=== PATIENT | male | born 1935 | race Caucasian/White ===

== ENCOUNTER 2017-12-15 17:21 | Inpatient (IN) ==
[2017-12-15] MEDS ORDERED: Furosemide 40 MG/4 ML VIAL IVP ONE (21:55)
[2017-12-15] MEDS ORDERED: methylPREDNISolone 125 MG/2 ML VIAL IVP ONE (21:56)
[2017-12-15] MEDS: Ipratropium/Albuterol Neb 3 ML IH PRN (22:01)
[2017-12-15 22:43] LABS: Alanine Aminotransferase 34 Units/L (7-52); Albumin 3.5 g/dL (3.5-5.7); Alkaline Phosphatase 47 Units/L (34-104); Aspartate Amino Transferase 30 Units/L (13-39); BUN/Creatinine Ratio 25 (6-26); Bilirubin,Total 0.6 mg/dL (0.3-1.0); Blood Urea Nitrogen 28 mg/dL (8-23); Calcium 8.7 mg/dL (8.6-10.3); Carbon Dioxide 30 mEq/L (23-29); Chloride 97 mEq/L (98-107); Globulin 3.4 g/dL (2.4-3.5); Glucose 220 mg/dL (70-105); Osmolality,Calculated 290 (280-300); Potassium 4.1 mEq/L (3.5-5.1); Sodium 134 mEq/L (136-145); Total Protein 6.9 g/dL (6.4-8.9); eGFR For African Americans > 60 (> 60); eGFR For Non-African Americans > 60 (> 60)
[2017-12-15] MEDS ORDERED: Naloxone 0.4 MG/ML INJ IVP PRN (23:25)
[2017-12-15] MEDS ORDERED: Acetaminophen 325 MG TABLET PO PRN (23:25)
[2017-12-15] MEDS ORDERED: Dextrose Gel 15 GM/37.5 ML TUBE PO PRN ×2 (23:31)
[2017-12-15] MEDS ORDERED: D5% in Water 1,000 ML IVC PRN (23:31)
[2017-12-15] MEDS ORDERED: *HR* Dextrose 50 % in Water (Syg) 50 ML SYRINGE IVP PRN (23:31)
[2017-12-15] MEDS ORDERED: Nitroglycerin 0.4 MG TAB.SUBL SL PRN (23:45)
[2017-12-16] MEDS: Ipratropium/Albuterol Neb 3 ML IH PRN ×2 (04:00→10:08)
[2017-12-16] MEDS: CALCIUM MAGNESIUM ZINC PO SCH ×2 (04:10→23:56)
--- NOTE | 2017-12-16 04:13 | Internal Med History&Physical ---
Date of Encounter: 12/15/17 Time of Encounter: 21:00 Assessment and Plan (1) CHF exacerbation Current visit: Yes Status: Acute Patient has elevated BNP and increased shortness of breath and bilateral leg swelling. Consider CHF exacerbation. The patient has severe valve disease with mainly aortic valve regurgitation. - Place patient on continuous cardiac monitoring. - Strict I/O - Lasix 40 mg IV twice a day - Fluid restriction - Avoid hypertension and bradycardia - Consult cardiology for further management Qualifiers: Congestive heart failure type: unspecified Qualified Code(s): I50.9 - Heart failure, unspecified (2) COPD (chronic obstructive pulmonary disease) Current visit: Yes Status: Acute Patient has no wheezing. We will continue home medication and DuoNeb as needed. 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 Avoid high blood pressure considering severe aortic regurgitation Qualifiers: Hypertension type: essential hypertension Qualified Code(s): I10 - Essential (primary) hypertension (5) CAD (coronary artery disease) Current visit: Yes Status: Acute Patient denies chest pain. Continue home medications Qualifiers: Coronary Disease-Associated Artery/Lesion type: [place] artery [place] vs. transplanted heart: [place] heart Associated angina: without angina Qualified Code(s): I25.10 - Atherosclerotic heart disease of [place] coronary artery without angina pectoris (6) S/P aortic valve replacement Current visit: Yes Status: Acute Patient had aortic valve replaced with bio-valve in [facility] 2 years ago. Patient said his cadmium liquor maker told him there is travis-valve leak. Former echo shows aortic regurgitation. - Management as above (7) Elevated troponin Current visit: Yes Status: Acute Patient denies chest pain. EKG shows no significant ST-T changes. Will check 3 sets of troponin and consult cardiology in a.m. (8) DVT prophylaxis Current visit: Yes Status: Acute Heparin subcutaneously Internal Medicine - H&P: HPI Chief complaint: Shortness of breath Admitted From: Home Plans for Post Hospital Care: Home History of present illness: Mr. Lyon is a 82 year old male with a history of COPD, diabetes, hypertension, CAD S/P stent, CHF, S/P aortic valve replacement with reported valve leak, present to ER for acute shortness of breath since this morning. Patient said he has trouble talking with shortness of breath. Denies fever, denies chest pain or nausea. Patient presents to [place] [facility] and was found elevated BNP and troponin. Patient was treated with Lasix and Solu-Medrol. His shortness of breath has improved. Patient was transferred to our hospital for further management. Past Med Surg Social Fam HX - Past Medical History Medical history: CHF, COPD, coronary artery disease, hyperlipidemia, hypertension Psychiatric history: no psych history - Social History Smoking Status: Former smoker Smokeless Tobacco Status: No Alcohol use: none Drug use: none - Family History Mother History Unknown: Yes Internal Medicine - H&P: Meds Acetaminophen [Tylenol] 650 mg PO Q6HR 12/15/17 [History] Aspirin Enteric Coated [Aspirin EC] 325 mg PO TID 12/15/17 [History] Budesonide/Formoterol 160/4.5 [Symbicort 160/4.5] 2 puff IH BIDR 12/15/17 [ History] Calcium/Magnesium/Zinc [Yivoptf-Quwucxhcr-Goob Tab] 1 each PO AD 12/15/17 [ History] Cholecalciferol (D-3) [Vitamin D] 1,000 unit PO DAILY 12/15/17 [History] Cyanocobalamin (Vitamin B-12) [Vitamin B-12] 1,000 mcg SL DAILY 12/15/17 [ History] Digoxin [Lanoxin] 0.125 mg PO DAILY 12/15/17 [History] DiphenhydraMINE [Benadryl] 25 mg PO BID 12/15/17 [History] Doxazosin [Cardura] 4 mg PO HS 12/15/17 [History] Ferrous Sulfate 325 mg PO DAILY 12/15/17 [History] Furosemide [Lasix] 20 mg PO BID 12/15/17 [History] Gabapentin [Neurontin] 300 mg PO QID 12/15/17 [History] Insulin NPH Human Isophane [Novolin N] 40 unit SQ BID 12/15/17 [History] Insulin Regular, Human [Novolin R] 4 unit SQ 0800,1700 12/15/17 [History] Insulin Regular, Human [Novolin R] 8 unit SQ 1200 12/15/17 [History] Losartan Potassium [Cozaar] 100 mg PO HS 12/15/17 [History] Metoprolol Succinate 12.5 mg PO DAILY 12/15/17 [History] Multivitamin [One Daily Multivitamin] 1 each PO DAILY 12/15/17 [History] Nitroglycerin [Nitrostat] 0.4 mg SL Q5M PRN 12/15/17 [History] Ranitidine HCl [Zantac] 300 mg PO BID 12/15/17 [History] Simvastatin [Zocor] 20 mg PO HS 12/15/17 [History] Theophylline Anhydrous [Usama-24] 300 mg PO DAILY 12/15/17 [History] Vitamin E Acid Succinate [Vitamin E] 400 unit PO DAILY 12/15/17 [History] guaiFENesin [Guaifenesin] 200 mg PO BID 12/15/17 [History] 3 Allergy/AdvReac Type Severity Reaction Status Date / Time lisinopril AdvReac See Verified 12/15/17 20:50 Comments All Systems PM: A 10-system review of systems was performed and is negative for pertinent findings except as documented above in the HPI. - Constitutional Vitals: Temp Pulse Resp BP Pulse Ox 98.1 F 119 20 156/80 92 12/16/17 03:48 12/16/17 03:48 12/16/17 03:48 12/16/17 03:48 12/16/17 03:48 General appearance: Present: mild distress, A&O X 3, answers questions appropriately - Head Head exam: Present: atraumatic, normocephalic - Eye Eye exam: Present: PERRL, conjuntiva pink, sclera anicteric Pupils: Present: PERRL - Neck Neck exam general surgery: Present: supple, trachea midline. Absent: lymphadenopathy - Respiratory Respiratory exam: Present: CTAB. Absent: accessory muscle use, rales, rhonchi, wheezes - Cardiovascular Cardiovascular exam: Present: RRR, +S1, +S2, tachycardia. Absent: diastolic murmur, gallop, rubs, systolic murmur - GI/Abdominal GI/Abdominal exam: Present: normal bowel sounds, soft, no peritoneal signs. Absent: distended, tenderness - Extremities Exam Extremities exam: Present: pedal edema (Bilateral up to knees), warm, radial pulses palpable and symmetrical. Absent: calf tenderness, cyanotic - Neurological Exam Neurological exam: Present: CN II-XII intact, oriented X3, no focal deficits. Absent: pronater drift, facial droop, speech deficit - Skin Skin exam: Present: dry, intact Internal Med - H&P Results - Labs CBC & Chem 7: 12/15/17 22:07 Labs: BMP 12/15/17 22:07 Sodium 134 L Potassium 4.1 Chloride 97 L Carbon Dioxide 30 H BUN 28 H Creatinine 1.12 Glucose 220 H Calcium 8.7 Cardiac Enzymes 12/15/17 Range/Units 22:07 Troponin I 0.93 H* (< 0.04) ng/mL Liver Function 12/15/17 Range/Units 22:07 Total Bilirubin 0.6 (0.3-1.0) mg/dL AST 30 (13-39) Units/L ALT 34 (7-52) Units/L Alkaline Phosphatase 47 (34-104) Units/L Albumin 3.5 (3.5-5.7) g/dL - EKG Data -: EKG Interpreted by Myself EKG shows normal: sinus rhythm Rate: tachycardia - Impressions ITS Impressions Chest X-Ray 12/15/17 21:52 IMPRESSION: Question of developing perihilar infiltrates. Otherwise no acute findings. D/ / Frank Bailey MD / Frank Bailey MD Interpreting Provider: Frank Bailey MD
[2017-12-16 04:43] LABS: Basophils % 0.2 %; Hematocrit 49.9 % (37.5-50.1); Immature Granulocytes % 0.5 % (0-4); Lymphocytes # 0.4 K/mcL (0.6-4.6); Mean Corpuscular HGB Conc 32.1 g/dL (31.6-35.5); Mean Corpuscular Hemoglobin 28.8 pg (28.0-33.3); Mean Corpuscular Volume 89.7 fL (83.0-100.0); Monocytes # 0.1 K/mcL (0.0-1.3); Monocytes % 1.1 %; Neutrophils # 8.7 K/mcL (1.6-8.9); Nucleated Red Blood Cells 0.2 /100 WBC (0); Platelet Count 261 K/mcL (140-400); Red Blood Count 5.56 M/mcL (4.19-5.50); Red Cell Distribution Width 15.8 % (11.5-14.5); Segmented Neutrophils % 94.2 %
[2017-12-16 04:58] LABS: BUN/Creatinine Ratio 26 (6-26); Blood Urea Nitrogen 31 mg/dL (8-23); Calcium 8.9 mg/dL (8.6-10.3); Carbon Dioxide 28 mEq/L (23-29); Chloride 96 mEq/L (98-107); Glucose 289 mg/dL (70-105); Magnesium 2.1 mg/dL (1.6-2.6); Osmolality,Calculated 297 (280-300); Potassium 4.3 mEq/L (3.5-5.1); Sodium 135 mEq/L (136-145); eGFR For African Americans > 60 (> 60); eGFR For Non-African Americans 58 (> 60)
[2017-12-16] MEDS ORDERED: *HR* Heparin 5,000 UNIT/ML VIAL SQ SCH (06:00)
--- NOTE | 2017-12-16 07:33 | Cardiology Consult Note ---
<Giovanny Grant - Last Filed: 12/16/17 13:27> Date of Encounter: 12/16/17 Time of Encounter: 07:30 Assessment and Plan (1) CHF exacerbation Current Visit: Yes Status: Acute Per Cardiology: BNP 823. Volume overload on exam, On IV Lasix 40mg BID. We'll initiate strict I& O, 1500 mL fluid restriction, bilateral MARINA hose. Qualifiers: Congestive heart failure type: unspecified Qualified Code(s): I50.9 - Heart failure, unspecified (2) COPD (chronic obstructive pulmonary disease) Current Visit: Yes Status: Acute Per Cardiology: Hx of nicotine abuse and COPD. CXR: IMPRESSION: Question of developing perihilar infiltrates. Otherwise no acute findings. Further management per primary service. Qualifiers: COPD type: emphysema Emphysema type: unspecified Qualified Code(s): J43.9 - Emphysema, unspecified (3) Elevated troponin Current Visit: Yes Status: Acute Per Cardiology: Troponin is noted to be 0.89, 0.93, and 0.59. Chest pain-free. Echo showed EF preserved 50-55%, [place]. (4) CAD (coronary artery disease) Current Visit: Yes Status: Acute Per Cardiology: Patient reports history of CAD/stents. Per previous review of [facility] records by Dr. Swift: CAD s/p stent in CAD in 2005. 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 Appears last heart catheterization May 2014 at [facility]: NHUNG to OM2, NHUNG x 2 to midLAD, and PTCA to LAD. 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 Patient denies stress test or catheterization since that procedure. Anticipate will need further ischemic evaluation once clinically improved. Possible [facility] Monday. We'll decrease aspirin to baby aspirin. On statin, beta lester, and ARB. We'll initiate IV heparin drip-- no bolus, was on SQ Hep. Discussed and reviewed with Dr. Hussein. Qualifiers: Coronary Disease-Associated Artery/Lesion type: [place] artery [place] vs. transplanted heart: [place] heart Associated angina: without angina Qualified Code(s): I25.10 - Atherosclerotic heart disease of [place] coronary artery without angina pectoris (5) S/P aortic valve replacement Current Visit: Yes Status: Chronic Per Cardiology: Echo shows mild to moderate aortic regurgitation of bioprosthetic aortic valve, no aortic stenosis noted. Last cardiology note reviewed and patient with history of TAVR at [facility] in May 2014. Discussion w patient/family: The assessment and plan as outlined above was discussed with the patient who expressed understanding and agreement. All questions were answered. Thank you for involving us in the care of your patient. Please call with any questions. History of Present Illness Consult date: 12/16/17 Requesting physician: Snow Corbin Consult reason: Trop Chief complaint: SOB History of present illness: Mr. Lyon is a 82 year old male with a relevant past medical history of COPD, CAD with stenting, DM 2, history of nicotine abuse, hx of TAVR at [facility] 05/2014. Last seen by cardiology Dr. Swift September 2017. Cardiology consult for concerns of aortic regurgitation, shortness of breath, and troponin elevation. Patient reports presented with worsening short of breath at rest and with exertion. He does report overall increase in lower extreme swelling and edema. Patient unaware of any significant weight gain. He denies any chest pain or palpitations. Denies any recent infectious process but denies any current cough , fever, chills, nausea, vomiting, diarrhea. He reports history of 3 stents and 2 angioplasties. He denies any dizziness. Reports one fall a few weeks ago "due to tripping". He denied any loss of consciousness or passing out. Past Med Surg Social Fam HX - Past Medical History Attestation: Yes The following information was validated with the patient. Source: patient, old records reviewed Medical history: CHF, COPD, coronary artery disease, hyperlipidemia, hypertension Psychiatric history: no psych history - Social History Smoking Status: Former smoker Smokeless Tobacco Status: No Alcohol use: none Drug use: none - Family History Mother History Unknown: Yes Medications and Allergies Acetaminophen [Tylenol] 650 mg PO Q6HR 12/15/17 [History] Aspirin Enteric Coated [Aspirin EC] 325 mg PO TID 12/15/17 [History] Budesonide/Formoterol 160/4.5 [Symbicort 160/4.5] 2 puff IH BIDR 12/15/17 [ History] Calcium/Magnesium/Zinc [Ljisvln-Lbdeacezb-Zhwn Tab] 1 each PO AD 12/15/17 [ History] Cholecalciferol (D-3) [Vitamin D] 1,000 unit PO DAILY 12/15/17 [History] Cyanocobalamin (Vitamin B-12) [Vitamin B-12] 1,000 mcg SL DAILY 12/15/17 [ History] Digoxin [Lanoxin] 0.125 mg PO DAILY 12/15/17 [History] DiphenhydraMINE [Benadryl] 25 mg PO BID 12/15/17 [History] Doxazosin [Cardura] 4 mg PO HS 12/15/17 [History] Ferrous Sulfate 325 mg PO DAILY 12/15/17 [History] Furosemide [Lasix] 20 mg PO BID 12/15/17 [History] Gabapentin [Neurontin] 300 mg PO QID 12/15/17 [History] Insulin NPH Human Isophane [Novolin N] 40 unit SQ BID 12/15/17 [History] Insulin Regular, Human [Novolin R] 4 unit SQ 0800,1700 12/15/17 [History] Insulin Regular, Human [Novolin R] 8 unit SQ 1200 12/15/17 [History] Losartan Potassium [Cozaar] 100 mg PO HS 12/15/17 [History] Metoprolol Succinate 12.5 mg PO DAILY 12/15/17 [History] Multivitamin [One Daily Multivitamin] 1 each PO DAILY 12/15/17 [History] Nitroglycerin [Nitrostat] 0.4 mg SL Q5M PRN 12/15/17 [History] Ranitidine HCl [Zantac] 300 mg PO BID 12/15/17 [History] Simvastatin [Zocor] 20 mg PO HS 12/15/17 [History] Theophylline Anhydrous [Usama-24] 300 mg PO DAILY 12/15/17 [History] Vitamin E Acid Succinate [Vitamin E] 400 unit PO DAILY 12/15/17 [History] guaiFENesin [Guaifenesin] 200 mg PO BID 12/15/17 [History] 3 Allergy/AdvReac Type Severity Reaction Status Date / Time lisinopril AdvReac See Verified 12/15/17 20:50 Comments All Systems Review: A 10-system review of systems was performed and is negative for pertinent findings except as documented above in the HPI. - Constitutional Constitutional: fatigue - Cardiovascular Cardiovascular: as per HPI, dyspnea at rest, dyspnea on exertion, leg edema Physical Examination Vital Signs, Last 4 Hours Temp Pulse Resp BP Pulse Ox 12/16/17 04:00 18 95 12/16/17 03:48 98.1 F 119 20 156/80 92 General: Conversant, No Apparent Distress HEENT: Atraumatic, Normocephaly, Mucus Membranes Moist Neck: No JVD, Normal carotid pulses Cardiac: Reg Rate and Rhythm, Normal S1 and S2, No Murmur Lungs: Other (conversational dyspnea, mild sob at rest, on NC 02-- reports not on home oxygen, diminished breath spounds throughout) Neuro: Alert and responsive, No focal deficits noted Abdomen: Soft, Non-Tender Skin: No rashes noted on visualized skin Musculoskeletal: No Chest Wall Tenderness Extremities: No Clubbing, No Cyanosis, Normal Pulses, Other (+1-2 pitting edema bilateral lower extremities) Results 12/16/17 04:10 12/16/17 04:10 Lab Results Laboratory Tests 12/15/17 12/15/17 12/15/17 15:54 22:07 22:07 Magnesium AST 30 ALT 34 Troponin I 0.89 H* 0.93 H* 12/16/17 12/16/17 04:10 04:10 Magnesium 2.1 AST ALT Troponin I 0.59 H* Laboratory Tests 12/15/17 15:54 INR 1.2 ITS Impressions Chest X-Ray 12/15/17 21:52 IMPRESSION: Question of developing perihilar infiltrates. Otherwise no acute findings. D/ / Frank Bailey MD / Frank Bailey MD Interpreting Provider: Frank Bailey MD Active Medications Acetaminophen (Tylenol) 650 mg PO Q6HR PRN PRN Reason: Mild Pain (1-3) Stop: 06/16/18 23:26 Albuterol/Ipratropium (Duoneb) 3 ml IH [id number] PRN PRN Reason: Shortness Of Breath/Wheezing Stop: 06/16/18 21:54 Last Admin: 12/16/17 04:00 Dose: 3 ml Aspirin (Aspirin Ec) 325 mg PO TID DENI Stop: 06/17/18 09:01 Budesonide/Formoterol Fumarate (Symbicort) 2 puff IH BIDR DENI PRN Reason: Protocol Stop: 06/17/18 10:01 Cyanocobalamin (Vitamin B12) 1,000 mcg PO DAILY [facility] Stop: 06/17/18 09:01 Dextrose/Water (Dextrose 50% (Syg)) 25 ml IVP AD PRN PRN Reason: Hypoglycemia Stop: 06/16/18 23:32 Digoxin (Lanoxin) 0.125 mg PO DAILY [facility] Stop: 06/17/18 09:01 Diphenhydramine HCl (Benadryl) 25 mg PO BID [facility] Stop: 06/17/18 09:01 Doxazosin Mesylate (Cardura) 4 mg PO HS [facility] Stop: 06/17/18 21:01 Ferrous Sulfate (Ferrous Sulfate) 325 mg PO DAILY [facility] Stop: 06/17/18 09:01 Furosemide (Lasix) 40 mg IVP BID [facility] Stop: 06/17/18 09:01 Gabapentin (Neurontin) 300 mg PO QID [facility] Stop: 06/17/18 09:01 Glucagon (Glucagen) 1 mg IM ONCE PRN PRN Reason: Hypoglycemia Stop: 06/16/18 23:32 Glucose (Gluctose) 15 gm PO ONCE PRN PRN Reason: Hypoglycemia Stop: 06/16/18 23:32 Glucose (Gluctose) 30 gm PO ONCE PRN PRN Reason: Hypoglycemia Stop: 06/16/18 23:32 Heparin Sodium (Porcine) (Heparin) 5,000 unit SQ Q12HCO [facility] Stop: 06/17/18 06:01 Last Admin: 12/16/17 06:57 Dose: 5,000 unit Hydralazine HCl (Hydralazine) 10 mg IVP Q6HR PRN PRN Reason: Hypertension Stop: 06/17/18 04:10 Dextrose (Dextrose 5%) 1,000 mls @ 100 mls/hr IVC .Q10H PRN PRN Reason: HYPOGLYCEMIA Stop: 06/16/18 23:32 Insulin Detemir (Levemir) 16 unit 0.15 unit/kg (16 unit) SQ BID [facility] Stop: 06/17/18 09:01 Insulin Human Lispro (Humalog) 0 units SQ HS [facility] PRN Reason: Protocol Stop: 06/17/18 21:01 Insulin Human Lispro (Humalog) 0 units SQ TIDAC [facility] PRN Reason: Protocol Stop: 06/17/18 07:31 Losartan Potassium (Cozaar) 100 mg PO HS DENI Stop: 06/16/18 23:46 Last Admin: 12/16/17 04:15 Dose: 100 mg Metoprolol Succinate (Toprol Xl) 12.5 mg PO DAILY DENI Stop: 06/17/18 09:01 Multivitamins/Calcium (Thera M Plus) 1 tab PO DAILY DENI Stop: 06/17/18 09:01 Naloxone HCl (Narcan) 0.4 mg IVP Q2MIN PRN PRN Reason: Opioid Reversal Stop: 06/16/18 23:26 Nitroglycerin (Nitroglycerin) 0.4 mg SL Q5M PRN PRN Reason: Chest Pain Stop: 06/16/18 23:46 Pharmacy Profile Note (Patient Taking Own Medication) 0 each PO AD DENI Stop: 06/16/18 23:46 Last Admin: 12/16/17 04:10 Dose: Not Given Simvastatin (Zocor) 20 mg PO HS DENI PRN Reason: Protocol Stop: 06/17/18 21:01 Vitamin D (Vitamin D) 1,000 unit PO DAILY DENI Stop: 06/17/18 09:01 Vitamin E (Vitamin E) 400 unit PO DAILY DENI Stop: 06/17/18 09:01 ECHO 11/2017: Impressions: LVEF 50-55%. Normal LV chamber size and function. Mild concentric left ventricular hypertrophy. Mild left ventricular diastolic dysfunction. Normal right ventricular structure and function. Moderately dilated left atrium. Bioprosthetic aortic valve noted. Leaflets not well visualized. Mild-moderate aortic regurgitation, unclear if vavluar or perivalvular. No prosthetic aortic stenosis. Mean gradient 12 mmHg. No evidence of pulmonary hypertension. Left Ventricular Wall Motion: Rest Echo Findings All wall segments showed normal motion. - Imaging and Cardiology Echo: report reviewed - EKG Interpretation EKG results cardiology: personally reviewed (ST 100's, RBBB), right bundle branch block, other (Telemetry reviewed and showed sinus rhythm to sinus tachycardia with average heart rate 94.) Consult Discharge Plan - Plan [facility]errals: [facility]Primary Care Provider[facility] - <Loretta Hussein - Last Filed: 12/16/17 16:19> Date of Encounter: 12/16/17 - Attending Attestation I examined this patient and my medical decision-making was reviewed with the CLAIM REPRESENTATIVE. I agree with the documented findings, disposition and treatment plan as described. Impression: Mr. Lyon presents with SOB and troponin elevation. He has known CAD most recent PCI in May 2014 at [facility] prior to undergoing TAVR. Also with known Type B aortic dissection, last evaluated in 2014. Echo demonstrated preserved EF without wall motion abnormalities and mild to moderate prosthetic aortic regurgitation without stenosis. The aortic root was normal size on the study. Patient's presenting complaints include resting shortness of breath and lower extremity edema. He denies chest pain, unusual back pain, syncope or palpitations. PLAN: Patient appears volume overloaded on exam. Agree with IV diuresis, fluid restriction and MARINA hose. Troponin noted to be elevated, peak 0.93. Patient is chest pain-free and EF did not demonstrate new wall motion abnormalities. EKG without acute findings. Etiology troponin elevation is unclear. Although he denies chest pain or back pain, it is reasonable to proceed with CT chest imaging given known history of type B aortic dissection. We would like this to be done before potentially anticoagulating the patient with heparin. Recommend increasing BB for better BP control. Assessment and Plan Discussion w patient/family: The assessment and plan as outlined above was discussed with the patient and/or family members who expressed understanding and agreement. All questions were answered. Thank you for involving us in the care of your patient. Please call with any questions. History of Present Illness History of present illness: Mr. Lyon is a 82 year old male All Systems Review: A 10-system review of systems was performed and is negative for pertinent findings except as documented above in the HPI. Physical Examination Vital Signs, Last 4 Hours Temp Pulse Resp BP Pulse Ox 12/16/17 12:03 97.6 F 101 15 139/82 93 Results 12/16/17 04:10 12/16/17 04:10 Lab Results 12/15/17 12/15/17 12/16/17 22:07 22:07 04:10 WBC 9.2 Hgb 16.0 Hct 49.9 Plt Count 261 Sodium 134 L Potassium 4.1 Chloride 97 L Carbon Dioxide 30 H BUN 28 H Creatinine 1.12 Glucose 220 H Calcium 8.7 Magnesium Total Bilirubin 0.6 AST 30 ALT 34 Alkaline Phosphatase 47 Troponin I 0.93 H* 12/16/17 12/16/17 04:10 04:10 WBC Hgb Hct Plt Count Sodium 135 L Potassium 4.3 Chloride 96 L Carbon Dioxide 28 BUN 31 H Creatinine 1.19 Glucose 289 H Calcium 8.9 Magnesium 2.1 Total Bilirubin AST ALT Alkaline Phosphatase Troponin I 0.59 H*
[2017-12-16] MEDS: Furosemide 40 MG/4 ML VIAL IVP SCH ×2 (08:43→21:02)
[2017-12-16] MEDS: Gabapentin 300 MG CAPSULE PO SCH ×4 (08:52→21:03)
[2017-12-16] MEDS: *HR* Digoxin 0.125 MG TABLET PO SCH (08:54)
[2017-12-16] MEDS: Multivit/Ca/Min/Fe/FA 1 TAB TABLET PO SCH (08:55)
[2017-12-16] MEDS: Cyanocobalamin (B-12) 1,000 MCG TABLET PO SCH (08:55)
[2017-12-16] MEDS: Cholecalciferol (D-3) 1,000 UNIT TABLET PO SCH (08:55)
[2017-12-16] MEDS ORDERED: Aspirin Enteric Coated 325 MG Tablet PO SCH (09:00)
[2017-12-16] MEDS ORDERED: Metoprolol XL (24 HR) Succ 25 MG TAB.ER.24H PO SCH (09:00)
[2017-12-16] MEDS: Insulin LISPRO 300 UNITS/3 ML VIAL SQ SCH ×4 (09:06→21:03)
[2017-12-16] MEDS: Insulin DETEMIR 100 UNIT/ML X5UNITS SQ SCH ×2 (09:07→21:05)
[2017-12-16] MEDS: Budesonide/Formoterol 160/4.5 MDI IH SCH ×2 (10:17→21:00)
--- NOTE | 2017-12-16 10:40 | Internal Med Progress Note ---
Date of Encounter: 12/16/17 Time of Encounter: 10:40 - Assessment and plan (1) Acute respiratory failure with hypoxia Current Visit: Yes Status: Acute Assessment and plan: Currently on 4liters oxygen. Moderately dyspneic at rest Continue to titrate oxygen as able while treating CHF (2) CHF exacerbation Current Visit: Yes Status: Acute Assessment and plan: EF of 50-55% in 10/13 Currently receiving IV diuresis Appreciate cardiology input. Monitor electrolytes while diuresing. Qualifiers: Congestive heart failure type: diastolic Qualified Code(s): I50.33 - Acute on chronic diastolic (congestive) heart failure (3) COPD (chronic obstructive pulmonary disease) Current Visit: Yes Status: Chronic Assessment and plan: Chronic issue. Continue aerosols, oxygen and supportive care. Qualifiers: COPD type: emphysema Emphysema type: panlobular Qualified Code(s): J43.1 - Panlobular emphysema (4) Diabetes Current Visit: Yes Status: Chronic Assessment and plan: Monitoring blood sugar and covering with insulin. 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 Qualifiers: Hypertension type: essential hypertension Qualified Code(s): I10 - Essential (primary) hypertension (6) CAD (coronary artery disease) Current Visit: Yes Status: Chronic Assessment and plan: Per cardiology May need further eval before discharge Qualifiers: Coronary Disease-Associated Artery/Lesion type: [place] artery [place] vs. transplanted heart: tribe heart Associated angina: without angina Qualified Code(s): I25.10 - Atherosclerotic heart disease of tribe coronary artery without angina pectoris (7) S/P aortic valve replacement Current Visit: Yes Status: Chronic Assessment and plan: Chronic issue - Subjective Interval history: Mr Lyon is currently admitted for acute exac CHF and resp failure. He remains moderate to high risk due to potential for worsening clinical status. Mr Lyon feels OK at this time. He is breathing a little better than on admit. Denies pain. No fever. Feels he is urinating enough. Slept OK last night. Bowels OK. Still feels he is very congested and full of fluid in his chest. - Constitutional Vitals: Temp Pulse Resp BP Pulse Ox 98.1 F 97 14 142/81 95 12/16/17 08:00 12/16/17 08:00 12/16/17 08:00 12/16/17 08:00 12/16/17 08:00 General appearance: Present: A&O X 3, answers questions appropriately - Head Head exam: Present: atraumatic, normocephalic - Eye Eye exam: Present: EOMI, conjuntiva pink - ENT ENT exam: Present: mucous membranes dry - Respiratory Respiratory exam: Present: rales, rhonchi Additional comments: Bibasilar rales. No wheeze - Cardiovascular Cardiovascular exam: Present: diastolic murmur, RRR. Absent: tachycardia - GI/Abdominal GI/Abdominal exam: Present: soft. Absent: tenderness - Extremities Exam Extremities exam: Present: pedal edema, warm. Absent: tenderness - Neurological Exam Neurological exam: Present: alert, oriented X3, no focal deficits - Skin Skin exam: Present: warm. Absent: rash Internal Medicine: Result - Labs CBC & Chem 7: 12/16/17 15:38 12/16/17 04:10 Labs: Short CBC 12/16/17 Range/Units 04:10 WBC 9.2 (4.3-11.1) K/mcL Hgb 16.0 (12.9-16.9) g/dL Hct 49.9 (37.5-50.1) % Plt Count 261 (140-400) K/mcL Neutrophils # 8.7 (1.6-8.9) K/mcL BMP 12/15/17 12/16/17 22:07 04:10 Sodium 134 L 135 L Potassium 4.1 4.3 Chloride 97 L 96 L Carbon Dioxide 30 H 28 BUN 28 H 31 H Creatinine 1.12 1.19 Glucose 220 H 289 H Calcium 8.7 8.9 Cardiac Enzymes 12/15/17 12/16/17 Range/Units 22:07 04:10 Troponin I 0.93 H* 0.59 H* (< 0.04) ng/mL Liver Function 12/15/17 Range/Units 22:07 Total Bilirubin 0.6 (0.3-1.0) mg/dL AST 30 (13-39) Units/L ALT 34 (7-52) Units/L Alkaline Phosphatase 47 (34-104) Units/L Albumin 3.5 (3.5-5.7) g/dL - Impressions Impressions Chest X-Ray 12/15/17 21:52 IMPRESSION: Question of developing perihilar infiltrates. Otherwise no acute findings. D/ / Frank Bailey MD / Frank Bailey MD Interpreting Provider: Frank Bailey MD Consult Discharge Plan - Plan [facility]: [facility] [Primary Care Provider] -
[2017-12-16] MEDS ORDERED: *HR* Heparin 5,000 UNIT/ML VIAL IVP PRN ×2 (14:29)
[2017-12-16] MEDS ORDERED: Heparin 25,000 UNIT/500 ML D5W 25,000 UNIT/500 ML BAG IVC SCH (14:30)
--- NOTE | 2017-12-16 15:15 | Event Note ---
Date of Encounter: 12/16/17 Time of Encounter: 15:00 - Cardiology Event Note Discussed and reviewed with Dr. 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
[2017-12-16 16:08] LABS: Hematocrit 44.3 % (37.5-50.1); Hemoglobin 14.6 g/dL (12.9-16.9); Mean Corpuscular Hemoglobin 29.3 pg (28.0-33.3); Mean Corpuscular Volume 88.8 fL (83.0-100.0); Mean Platelet Volume 9.2 fL (9.4-12.4); Platelet Count 228 K/mcL (140-400); Red Blood Count 4.99 M/mcL (4.19-5.50); Red Cell Distribution Width 15.5 % (11.5-14.5)
[2017-12-16 16:13] LABS: INR 1.2
[2017-12-16 16:16] LABS: Activated Partial Thrombo Time 26.8 Seconds (26.0-36.0)
[2017-12-17 06:01] LABS: Hematocrit 43.5 % (37.5-50.1); Hemoglobin 13.8 g/dL (12.9-16.9); Mean Corpuscular HGB Conc 31.7 g/dL (31.6-35.5); Mean Corpuscular Hemoglobin 28.8 pg (28.0-33.3); Mean Corpuscular Volume 90.8 fL (83.0-100.0); Mean Platelet Volume 9.2 fL (9.4-12.4); Platelet Count 209 K/mcL (140-400); Red Blood Count 4.79 M/mcL (4.19-5.50); Red Cell Distribution Width 15.8 % (11.5-14.5)
[2017-12-17 06:19] LABS: Calcium 8.4 mg/dL (8.6-10.3); Magnesium 2.5 mg/dL (1.6-2.6); Potassium 4.3 mEq/L (3.5-5.1)
--- NOTE | 2017-12-17 08:07 | Cardiology Progress Note ---
Date of Encounter: 12/17/17 Time of Encounter: 08:05 Assessment and Plan (1) CHF exacerbation Current Visit: Yes Status: Acute Per Cardiology: BNP 823. Volume overload on exam, on IV Lasix 40mg BID, strict I&O, 1500 mL fluid restriction, bilateral MARINA hose-- not on. Net I&O - 847ml. Appears slightly improved. Now with mild SLY. Will discontinue ARB. Continue IV diuresis for now and monitor kidney function closely. Consider nephrology consult if warranted. Patient on digoxin as outpatient-- has preserved EF and no known hx of afib (he believes). Will monitor closely-- may need to stop if SLY worsens. Qualifiers: Congestive heart failure type: diastolic Qualified Code(s): I50.33 - Acute on chronic diastolic (congestive) heart failure (2) COPD (chronic obstructive pulmonary disease) Current Visit: Yes Status: Chronic Per Cardiology: Hx of nicotine abuse and COPD. CXR: IMPRESSION: Question of developing perihilar infiltrates. Otherwise no acute findings. Further management per primary service. Qualifiers: COPD type: emphysema Emphysema type: panlobular Qualified Code(s): J43.1 - Panlobular emphysema (3) Elevated troponin Current Visit: Yes Status: Acute Per Cardiology: Troponin is noted to be 0.89, 0.93, and 0.59. Chest pain-free. Echo showed EF preserved 50-55%, [place]. (4) CAD (coronary artery disease) Current Visit: Yes Status: Chronic Per Cardiology: Patient reports history of CAD/stents. Per previous review of [facility] records by Dr. Swift: CAD s/p stent in CAD in 2005. 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 Appears last heart catheterization May 2014 at [facility]: NHUNG to OM2, NHUNG x 2 to midLAD, and PTCA to LAD. 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 Patient denies stress test or catheterization since that procedure. Anticipate will need further ischemic evaluation once clinically improved. Possible [facility] Monday, however will need to review with interventional cardiology CT results: Chest CTA 12/16/17 15:15 IMPRESSION: 1. No acute aortic pathology. 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 Stable short dissection flap along the left lateral wall of the aortic arch. Moderate diffuse atherosclerotic changes. No aneurysm. 2. No central pulmonary embolic disease. 3. Prominent calcified atherosclerotic plaque in the coronary circulation. 4. New focal subsegmental atelectasis in the right middle lobe. No acute pulmonary infiltrate. Recommend follow-up PA and lateral chest to assess for resolution. If the finding persists, repeat CT is indicated. 5. Cholelithiasis. Additionally, will need to further eval when able to tolerate laying flat for procedure, and monitor ashleyleyda fxn. Will make NPO for possible LHC in am, however suspect may need to wait longer. CP free. On asa, statin, beta lester, will stop ARB d/t SLY. Qualifiers: Coronary Disease-Associated Artery/Lesion type: [place] artery [place] vs. transplanted heart: [place] heart Associated angina: without angina Qualified Code(s): I25.10 - Atherosclerotic heart disease of [place] coronary artery without angina pectoris (5) S/P aortic valve replacement Current Visit: Yes Status: Chronic Per Cardiology: Echo shows mild to moderate aortic regurgitation of bioprosthetic aortic valve, no aortic stenosis noted. Last cardiology note reviewed and patient with history of TAVR at [facility] in May 2014. Discussion w patient/family: The assessment and plan as outlined above was discussed with the patient who expressed understanding and agreement. All questions were answered. Thank you for involving us in the care of your patient. Please call with any questions. Subjective Principal diagnosis: CHF, SOB, Elevated Trop CAD Interval history: Patient denies any chest pain or palpitations. Reports no known history of atrial fibrillation. Confirms taking digoxin at home. Reports shortness of breath and edema slightly improved today. Objective Vital Signs, Last 4 Hours Pulse Resp Pulse Ox 12/17/17 07:38 76 16 95 Selected Entries 12/17/17 03:43 12/17/17 07:38 Blood Pressure 103/51 O2 Sat by Pulse Oximetry 95 Oxygen Flow Rate (LPM) 2 Oxygen Delivery Method Nasal Cannula General: Conversant HEENT: Atraumatic, Normocephaly Cardiac: Reg Rate and Rhythm, Normal S1 and S2, No Murmur Lungs: Other (Diminished breath sounds throughout, few rhonchi at the bases, mild conversational dyspnea noted) Neuro: Alert and responsive, No focal deficits noted Abdomen: Soft Extremities: Other (+1-2 pitting edema to right lower extremity, +1 pitting edema to left lower extremity-- appears slightly improved) Results 12/17/17 05:35 12/17/17 05:35 Lab Results Impressions Chest CTA 12/16/17 15:15 IMPRESSION: 1. No acute aortic pathology. 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 Stable short dissection flap along the left lateral wall of the aortic arch. Moderate diffuse atherosclerotic changes. No aneurysm. 2. No central pulmonary embolic disease. 3. Prominent calcified atherosclerotic plaque in the coronary circulation. 4. New focal subsegmental atelectasis in the right middle lobe. No acute pulmonary infiltrate. Recommend follow-up PA and lateral chest to assess for resolution. If the finding persists, repeat CT is indicated. 5. Cholelithiasis. D/ / 12/16/2017 17:51:48 Frank Bailey MD / [facility] Interpreting Provider: Frank Bailey MD Laboratory Tests 12/15/17 12/15/17 12/16/17 15:54 22:07 04:10 INR Creatinine Est GFR (Non-Af Amer) Troponin I 0.89 H* 0.93 H* 0.59 H* 12/16/17 12/17/17 15:38 05:35 INR 1.2 Creatinine 1.51 H Est GFR (Non-Af Amer) 44 L Troponin I Intake & Output 12/14/17 12/15/17 12/16/17 12/17/17 23:59 23:59 23:59 23:59 Intake Total 483 / 483 320 / 320 Output Total 400 / 400 1250 / 1250 Balance -400 / -400 -767 / -767 320 / 320 Weight 100.4 kg 99 kg Active Medications Acetaminophen (Tylenol) 650 mg PO Q6HR PRN PRN Reason: Mild Pain (1-3) Stop: 06/16/18 23:26 Last Admin: 12/17/17 09:55 Dose: 650 mg Albuterol/Ipratropium (Duoneb) 3 ml IH [id number] PRN PRN Reason: Shortness Of Breath/Wheezing Stop: 06/16/18 21:54 Last Admin: 12/16/17 10:08 Dose: 3 ml Aspirin (Aspirin) 81 mg PO DAILY DENI Stop: 06/18/18 09:01 Last Admin: 12/17/17 09:55 Dose: 81 mg Budesonide/Formoterol Fumarate (Symbicort) 2 puff IH BIDR DENI PRN Reason: Protocol Stop: 06/17/18 10:01 Last Admin: 12/17/17 11:02 Dose: 2 puff Clopidogrel Bisulfate (Plavix) 75 mg PO DAILY DENI Stop: 06/18/18 09:01 Last Admin: 12/17/17 09:53 Dose: 75 mg Cyanocobalamin (Vitamin B12) 1,000 mcg PO DAILY DENI Stop: 06/17/18 09:01 Last Admin: 12/17/17 09:47 Dose: 1,000 mcg Dextrose/Water (Dextrose 50% (Syg)) 25 ml IVP AD PRN PRN Reason: Hypoglycemia Stop: 06/16/18 23:32 Digoxin (Lanoxin) 0.125 mg PO DAILY DENI Stop: 06/17/18 09:01 Last Admin: 12/17/17 09:47 Dose: 0.125 mg Diphenhydramine HCl (Benadryl) 25 mg PO BID DENI Stop: 06/17/18 09:01 Last Admin: 12/17/17 09:48 Dose: 25 mg Doxazosin Mesylate (Cardura) 4 mg PO HS [facility] Stop: 06/17/18 21:01 Last Admin: 12/16/17 21:03 Dose: 4 mg Ferrous Sulfate (Ferrous Sulfate) 325 mg PO DAILY DENI Stop: 06/17/18 09:01 Last Admin: 12/17/17 09:48 Dose: 325 mg Furosemide (Lasix) 40 mg IVP BID DENI Stop: 06/17/18 09:01 Last Admin: 12/17/17 09:48 Dose: 40 mg Gabapentin (Neurontin) 300 mg PO QID DENI Stop: 06/17/18 09:01 Last Admin: 12/17/17 09:47 Dose: 300 mg Glucagon (Glucagen) 1 mg IM ONCE PRN PRN Reason: Hypoglycemia Stop: 06/16/18 23:32 Glucose (Gluctose) 15 gm PO ONCE PRN PRN Reason: Hypoglycemia Stop: 06/16/18 23:32 Glucose (Gluctose) 30 gm PO ONCE PRN PRN Reason: Hypoglycemia Stop: 06/16/18 23:32 Heparin Sodium (Porcine) (Heparin) 5,000 unit SQ Q12HCO [facility] Stop: 06/18/18 08:46 Last Admin: 12/17/17 09:52 Dose: 5,000 unit Hydralazine HCl (Hydralazine) 10 mg IVP Q6HR PRN PRN Reason: Hypertension Stop: 06/17/18 04:10 Dextrose (Dextrose 5%) 1,000 mls @ 100 mls/hr IVC .Q10H PRN PRN Reason: HYPOGLYCEMIA Stop: 06/16/18 23:32 Insulin Detemir (Levemir) 16 unit 0.15 unit/kg (16 unit) SQ BID [facility] Stop: 06/17/18 09:01 Last Admin: 12/17/17 09:48 Dose: 16 unit Insulin Human Lispro (Humalog) 0 units SQ HS DENI PRN Reason: Protocol Stop: 06/17/18 21:01 Last Admin: 12/16/17 21:03 Dose: 3 units Insulin Human Lispro (Humalog) 0 units SQ TIDAC DENI PRN Reason: Protocol Stop: 06/17/18 07:31 Last Admin: 12/17/17 09:49 Dose: 4 units Metoprolol Succinate (Toprol Xl) 25 mg PO DAILY [facility] Stop: 06/18/18 09:01 Last Admin: 12/17/17 09:48 Dose: 25 mg Multivitamins/Calcium (Thera M Plus) 1 tab PO DAILY [facility] Stop: 06/17/18 09:01 Last Admin: 12/17/17 09:48 Dose: 1 tab Naloxone HCl (Narcan) 0.4 mg IVP Q2MIN PRN PRN Reason: Opioid Reversal Stop: 06/16/18 23:26 Nitroglycerin (Nitroglycerin) 0.4 mg SL Q5M PRN PRN Reason: Chest Pain Stop: 06/16/18 23:46 Pharmacy Profile Note (Patient Taking Own Medication) 0 each PO AD DENI Stop: 06/16/18 23:46 Last Admin: 12/16/17 23:56 Dose: Not Given Simvastatin (Zocor) 20 mg PO HS DENI PRN Reason: Protocol Stop: 06/17/18 21:01 Last Admin: 12/16/17 21:03 Dose: 20 mg Vitamin D (Vitamin D) 1,000 unit PO DAILY DENI Stop: 06/17/18 09:01 Last Admin: 12/17/17 09:47 Dose: 1,000 unit Vitamin E (Vitamin E) 400 unit PO DAILY [facility] Stop: 06/17/18 09:01 Last Admin: 12/17/17 09:47 Dose: 400 unit - Imaging and Cardiology Echo: report reviewed - EKG Interpretation EKG results cardiology: other (Sinus rhythm to sinus tachycardia on telemetry 80s to 100s) Consult Discharge Plan - Plan [facility]: [facility] [Primary Care Provider] -
[2017-12-17] MEDS: Cyanocobalamin (B-12) 1,000 MCG TABLET PO SCH (09:47)
[2017-12-17] MEDS: Cholecalciferol (D-3) 1,000 UNIT TABLET PO SCH (09:47)
[2017-12-17] MEDS: *HR* Digoxin 0.125 MG TABLET PO SCH (09:47)
[2017-12-17] MEDS: Gabapentin 300 MG CAPSULE PO SCH ×4 (09:47→20:21)
[2017-12-17] MEDS: Multivit/Ca/Min/Fe/FA 1 TAB TABLET PO SCH (09:48)
[2017-12-17] MEDS: Insulin DETEMIR 100 UNIT/ML X5UNITS SQ SCH ×2 (09:48→21:49)
[2017-12-17] MEDS: Metoprolol XL (24 HR) Succ 25 MG TAB.ER.24H PO SCH (09:48)
[2017-12-17] MEDS: Furosemide 40 MG/4 ML VIAL IVP SCH ×2 (09:48→20:20)
[2017-12-17] MEDS: Insulin LISPRO 300 UNITS/3 ML VIAL SQ SCH ×4 (09:49→21:50)
[2017-12-17] MEDS: *HR* Heparin 5,000 UNIT/ML VIAL SQ SCH ×2 (09:52→17:28)
[2017-12-17] MEDS: Aspirin 81 MG TAB.CHEW PO SCH (09:55)
[2017-12-17] MEDS: Budesonide/Formoterol 160/4.5 MDI IH SCH ×2 (11:02→22:26)
--- NOTE | 2017-12-17 17:16 | Internal Med Progress Note ---
Date of Encounter: 12/17/17 Time of Encounter: 15:45 - Assessment and plan (1) Acute respiratory failure with hypoxia Current Visit: Yes Status: Acute Assessment and plan: Titrating down as able Appears to be a little better today. Continue supportive care. (2) CHF exacerbation Current Visit: Yes Status: Acute Assessment and plan: Slowly diuresing. Appreciate cardiology input Monitoring renal function as it is slightly worse today. Qualifiers: Congestive heart failure type: diastolic Qualified Code(s): I50.33 - Acute on chronic diastolic (congestive) heart failure (3) COPD (chronic obstructive pulmonary disease) Current Visit: Yes Status: Chronic Assessment and plan: Chronic issue. Seems to be wheezing some today Will add abx and steroids and see if it improves respiratory status. Qualifiers: COPD type: emphysema Emphysema type: panlobular Qualified Code(s): J43.1 - Panlobular emphysema (4) Diabetes Current Visit: Yes Status: Chronic Assessment and plan: Monitoring blood sugar and covering with insulin. May worsen with addition of steroids. 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 Qualifiers: Hypertension type: essential hypertension Qualified Code(s): I10 - Essential (primary) hypertension (6) CAD (coronary artery disease) Current Visit: Yes Status: Chronic Assessment and plan: Per cardiology May need further eval before discharge Qualifiers: Coronary Disease-Associated Artery/Lesion type: [place] artery [place] vs. transplanted heart: [place] heart Associated angina: without angina Qualified Code(s): I25.10 - Atherosclerotic heart disease of [place] coronary artery without angina pectoris (7) S/P aortic valve replacement Current Visit: Yes Status: Chronic Assessment and plan: Chronic issue (8) Acute renal failure due to tubular necrosis Current Visit: Yes Status: Suspected Assessment and plan: Related to diuresis. Monitoring renal function. - Subjective Interval history: Mr Lyon is currently admitted for acute exac CHF and resp failure. He remains moderate to high risk due to potential for worsening clinical status. Mr Lyon is resting in bed. His breathing is somewhat better he feels and he can lie flat on his side. No fever. No pain at this time. No GI issues. Appreciate cardiology input. - Constitutional Vitals: Temp Pulse Resp BP Pulse Ox 98.1 F 76 18 106/54 92 12/17/17 08:06 12/17/17 08:06 12/17/17 11:02 12/17/17 08:06 12/17/17 11:04 General appearance: Present: A&O X 3, answers questions appropriately - Head Head exam: Present: atraumatic, normocephalic - Eye Eye exam: Present: EOMI, conjuntiva pink - ENT ENT exam: Present: mucous membranes dry - Respiratory Respiratory exam: Present: decreased breath sounds, rales, wheezes - Cardiovascular Cardiovascular exam: Present: irregular rhythm. Absent: tachycardia - GI/Abdominal GI/Abdominal exam: Present: soft, no peritoneal signs. Absent: tenderness - Extremities Exam Extremities exam: Present: pedal edema, warm - Neurological Exam Neurological exam: Present: alert, oriented X3 - Skin Skin exam: Present: warm. Absent: rash Internal Medicine: Result - Labs CBC & Chem 7: 12/17/17 05:35 12/17/17 05:35 Labs: Short CBC 12/17/17 Range/Units 05:35 WBC 9.1 (4.3-11.1) K/mcL Hgb 13.8 (12.9-16.9) g/dL Hct 43.5 (37.5-50.1) % Plt Count 209 (140-400) K/mcL [facility] 12/17/17 05:35 Sodium 140 Potassium 4.3 Chloride 99 Carbon Dioxide 35 H BUN 37 H Creatinine 1.51 H Glucose 179 H Calcium 8.4 L - ABG Interpretation ABG results: PT/INR, D-dimer PT 13.0 Seconds (9.4-12.1) H 12/16/17 15:38 - Impressions Impressions Chest CTA 12/16/17 15:15 IMPRESSION: 1. No acute aortic pathology. 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 Stable short dissection flap along the left lateral wall of the aortic arch. Moderate diffuse atherosclerotic changes. No aneurysm. 2. No central pulmonary embolic disease. 3. Prominent calcified atherosclerotic plaque in the coronary circulation. 4. New focal subsegmental atelectasis in the right middle lobe. No acute pulmonary infiltrate. Recommend follow-up PA and lateral chest to assess for resolution. If the finding persists, repeat CT is indicated. 5. Cholelithiasis. D/ / 12/16/2017 17:51:48 Frank Bailey MD / [facility] Interpreting Provider: Frank Bailey MD Consult Discharge Plan - Plan Referrals: [facility] [Primary Care Provider] -
[2017-12-17] MEDS: predniSONE 20 MG TABLET PO SCH (20:08)
[2017-12-17] MEDS: Azithromycin 250 MG TABLET PO SCH (20:08)
[2017-12-17] MEDS: cefTRIAXone 1,000 MG in Water for inj. (sterile) 20 ML 10 ML IVP SCH (20:09)
[2017-12-17] MEDS: Ipratropium/Albuterol Neb 3 ML IH PRN (22:26)
[2017-12-18] MEDS: CALCIUM MAGNESIUM ZINC PO SCH (00:02)
[2017-12-18 05:34] LABS: Hematocrit 42.9 % (37.5-50.1); Hemoglobin 13.8 g/dL (12.9-16.9); Mean Corpuscular HGB Conc 32.2 g/dL (31.6-35.5); Mean Corpuscular Hemoglobin 29.2 pg (28.0-33.3); Mean Corpuscular Volume 90.7 fL (83.0-100.0); Mean Platelet Volume 9.5 fL (9.4-12.4); Platelet Count 216 K/mcL (140-400); Red Blood Count 4.73 M/mcL (4.19-5.50); Red Cell Distribution Width 15.7 % (11.5-14.5)
[2017-12-18 05:35] LABS: BUN/Creatinine Ratio 31 (6-26); Blood Urea Nitrogen 38 mg/dL (8-23); Calcium 8.7 mg/dL (8.6-10.3); Carbon Dioxide 34 mEq/L (23-29); Chloride 97 mEq/L (98-107); Glucose 254 mg/dL (70-105); Magnesium 2.3 mg/dL (1.6-2.6); Osmolality,Calculated 302 (280-300); Potassium 5.1 mEq/L (3.5-5.1); Sodium 137 mEq/L (136-145); eGFR For African Americans > 60 (> 60); eGFR For Non-African Americans 57 (> 60)
[2017-12-18] MEDS: *HR* Heparin 5,000 UNIT/ML VIAL SQ SCH ×2 (05:39→18:12)
[2017-12-18] MEDS: Budesonide/Formoterol 160/4.5 MDI IH SCH ×2 (08:05→20:39)
[2017-12-18] MEDS: Insulin LISPRO 300 UNITS/3 ML VIAL SQ SCH ×3 (08:10→17:14)
[2017-12-18] MEDS: cefTRIAXone 1,000 MG in Water for inj. (sterile) 20 ML 10 ML IVP SCH (08:12)
[2017-12-18] MEDS: Furosemide 40 MG/4 ML VIAL IVP SCH ×2 (08:13→17:14)
[2017-12-18] MEDS: predniSONE 20 MG TABLET PO SCH (08:14)
[2017-12-18] MEDS: Metoprolol XL (24 HR) Succ 25 MG TAB.ER.24H PO SCH (08:14)
[2017-12-18] MEDS: Gabapentin 300 MG CAPSULE PO SCH ×3 (08:14→21:14)
[2017-12-18] MEDS: Multivit/Ca/Min/Fe/FA 1 TAB TABLET PO SCH (08:14)
[2017-12-18] MEDS: Cyanocobalamin (B-12) 1,000 MCG TABLET PO SCH (08:14)
[2017-12-18] MEDS: *HR* Digoxin 0.125 MG TABLET PO SCH (08:14)
[2017-12-18] MEDS: Cholecalciferol (D-3) 1,000 UNIT TABLET PO SCH (08:14)
[2017-12-18] MEDS: Aspirin 81 MG TAB.CHEW PO SCH (08:15)
[2017-12-18] MEDS: Insulin DETEMIR 100 UNIT/ML X5UNITS SQ SCH ×2 (08:15→21:15)
--- NOTE | 2017-12-18 10:09 | Cardiology Progress Note ---
Date of Encounter: 12/18/17 Time of Encounter: 10:00 Assessment and Plan (1) CHF exacerbation Current Visit: Yes Status: Acute Per Cardiology: BNP 823. Volume overload on exam, on IV Lasix 40mg BID, strict I&O, 1500 mL fluid restriction, bilateral MARINA hose-- not on. Net I&O -1812ml. Appears slightly improved. Off ARB-- had mild SLY. Continue IV diuresis for now and monitor kidney function closely. Consider nephrology consult if warranted. Patient on digoxin as outpatient-- has preserved EF and no known hx of afib (he believes). Will monitor closely-- may need to stop if SLY worsens. Qualifiers: Congestive heart failure type: diastolic Qualified Code(s): I50.33 - Acute on chronic diastolic (congestive) heart failure (2) COPD (chronic obstructive pulmonary disease) Current Visit: Yes Status: Chronic Per Cardiology: Hx of nicotine abuse and COPD. CXR: IMPRESSION: Question of developing perihilar infiltrates. Otherwise no acute findings. Further management per primary service. Qualifiers: COPD type: emphysema Emphysema type: panlobular Qualified Code(s): J43.1 - Panlobular emphysema (3) Elevated troponin Current Visit: Yes Status: Acute Per Cardiology: Troponin is noted to be 0.89, 0.93, and 0.59. Chest pain-free. Echo showed EF preserved 50-55%, NSWMA. (4) CAD (coronary artery disease) Current Visit: Yes Status: Chronic Per Cardiology: Patient reports history of CAD/stents. Per previous review of [facility] records by Dr. Swift: CAD s/p stent in CAD in 2005. 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 Appears last heart catheterization May 2014 at [facility]: NHUNG to OM2, NHUNG x 2 to midLAD, and PTCA to LAD. 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 Patient denies stress test or catheterization since that procedure. Chest CTA 12/16/17 15:15 IMPRESSION: 1. No acute aortic pathology. 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 Stable short dissection flap along the left lateral wall of the aortic arch. Moderate diffuse atherosclerotic changes. No aneurysm. 2. No central pulmonary embolic disease. 3. Prominent calcified atherosclerotic plaque in the coronary circulation. 4. New focal subsegmental atelectasis in the right middle lobe. No acute pulmonary infiltrate. Recommend follow-up PA and lateral chest to assess for resolution. If the finding persists, repeat CT is indicated. 5. Cholelithiasis. Patient reviewed and discussed with Dr. Galdamez. CT results reviewed. Patient deemed high risk for cath, recommend evaluate at [facility] if needed. I discussed with patient, he remains CP free. We discussed potential transfer to [facility] for eval for LHC, however patient prefers to continue with medical management and f/ u with Dr. Swift as outpatient to re-evalaute. Can consider referral to [facility] for cath then if clinically warranted. On asa, statin, beta lester, off ARB d/ t SLY. Discussed with primary service, will s/o, re-consult PRN, f/u arranged. Qualifiers: Coronary Disease-Associated Artery/Lesion type: [place] artery [place] vs. transplanted heart: [place] heart Associated angina: without angina Qualified Code(s): I25.10 - Atherosclerotic heart disease of [place] coronary artery without angina pectoris (5) S/P aortic valve replacement Current Visit: Yes Status: Chronic Per Cardiology: Echo shows mild to moderate aortic regurgitation of bioprosthetic aortic valve, no aortic stenosis noted. Last cardiology note reviewed and patient with history of TAVR at [facility] in May 2014. Discussion w patient/family: The assessment and plan as outlined above was discussed with the patient who expressed understanding and agreement. All questions were answered. Thank you for involving us in the care of your patient. Please call with any questions. Subjective Principal diagnosis: CHF, SOB, Elevated Trop CAD Interval history: Patient denies any chest pain or palpitations. Reports shortness of breath and edema slightly improved today. Objective Vital Signs, Last 4 Hours Temp Pulse Resp BP Pulse Ox 12/18/17 08:06 16 93 12/18/17 06:32 97.6 F 91 15 123/60 92 General: Conversant, No Apparent Distress HEENT: Atraumatic, Normocephaly Cardiac: Reg Rate and Rhythm, Normal S1 and S2, No Murmur Lungs: Other (dimin) Neuro: Alert and responsive, No focal deficits noted Skin: No rashes noted on visualized skin Extremities: Other (+1 pitting edema, R>L) Results 12/18/17 04:30 12/18/17 04:30 Lab Results Laboratory Tests 12/15/17 12/16/17 12/18/17 22:07 04:10 04:30 Creatinine 1.22 BUN/Creatinine Ratio 31 H Troponin I 0.93 H* 0.59 H* Intake & Output 12/15/17 12/16/17 12/17/17 12/18/17 23:59 23:59 23:59 23:59 Intake Total 963 / 963 650 / 650 0 / 0 Output Total 400 / 400 1250 / 1250 1175 / 1175 600 / 600 Balance -400 / -400 -287 / -287 -525 / -525 -600 / -600 Weight 100.4 kg 99 kg 98.4 kg Active Medications Acetaminophen (Tylenol) 650 mg PO Q6HR PRN PRN Reason: Mild Pain (1-3) Stop: 06/16/18 23:26 Last Admin: 12/17/17 09:55 Dose: 650 mg Albuterol/Ipratropium (Duoneb) 3 ml IH [id number] PRN PRN Reason: Shortness Of Breath/Wheezing Stop: 06/16/18 21:54 Last Admin: 12/17/17 22:26 Dose: 3 ml Aspirin (Aspirin) 81 mg PO DAILY [facility] Stop: 06/18/18 09:01 Last Admin: 12/18/17 08:15 Dose: 81 mg Azithromycin (Zithromax) 500 mg PO Q24H DENI Stop: 06/18/18 18:01 Last Admin: 12/17/17 20:08 Dose: 500 mg Budesonide/Formoterol Fumarate (Symbicort) 2 puff IH BIDR DENI PRN Reason: Protocol Stop: 06/17/18 10:01 Last Admin: 12/18/17 08:05 Dose: 2 puff Clopidogrel Bisulfate (Plavix) 75 mg PO DAILY [facility] Stop: 06/18/18 09:01 Last Admin: 12/18/17 08:13 Dose: 75 mg Cyanocobalamin (Vitamin B12) 1,000 mcg PO DAILY [facility] Stop: 06/17/18 09:01 Last Admin: 12/18/17 08:14 Dose: 1,000 mcg Dextrose/Water (Dextrose 50% (Syg)) 25 ml IVP AD PRN PRN Reason: Hypoglycemia Stop: 06/16/18 23:32 Digoxin (Lanoxin) 0.125 mg PO DAILY [facility] Stop: 06/17/18 09:01 Last Admin: 12/18/17 08:14 Dose: 0.125 mg Diphenhydramine HCl (Benadryl) 25 mg PO BID DENI Stop: 06/17/18 09:01 Last Admin: 12/18/17 08:15 Dose: 25 mg Doxazosin Mesylate (Cardura) 4 mg PO HS [facility] Stop: 06/17/18 21:01 Last Admin: 12/17/17 20:21 Dose: 4 mg Ferrous Sulfate (Ferrous Sulfate) 325 mg PO DAILY [facility]I Stop: 06/17/18 09:01 Last Admin: 12/18/17 08:15 Dose: 325 mg Furosemide (Lasix) 40 mg IVP BID [facility] Stop: 06/17/18 09:01 Last Admin: 12/18/17 08:13 Dose: 40 mg Gabapentin (Neurontin) 300 mg PO QID [facility] Stop: 06/17/18 09:01 Last Admin: 12/18/17 08:14 Dose: 300 mg Glucagon (Glucagen) 1 mg IM ONCE PRN PRN Reason: Hypoglycemia Stop: 06/16/18 23:32 Glucose (Gluctose) 15 gm PO ONCE PRN PRN Reason: Hypoglycemia Stop: 06/16/18 23:32 Glucose (Gluctose) 30 gm PO ONCE PRN PRN Reason: Hypoglycemia Stop: 06/16/18 23:32 Heparin Sodium (Porcine) (Heparin) 5,000 unit SQ Q12HCO [facility] Stop: 06/18/18 08:46 Last Admin: 12/18/17 05:39 Dose: 5,000 unit Hydralazine HCl (Hydralazine) 10 mg IVP Q6HR PRN PRN Reason: Hypertension Stop: 06/17/18 04:10 Dextrose (Dextrose 5%) 1,000 mls @ 100 mls/hr IVC .Q10H PRN PRN Reason: HYPOGLYCEMIA Stop: 06/16/18 23:32 Ceftriaxone Sodium 1,000 mg/ (Sterile Water) 10 mls @ 300 mls/hr IVP DAILY [facility] Stop: 06/18/18 18:01 Last Admin: 12/18/17 08:12 Dose: 300 mls/hr Insulin Detemir (Levemir) 16 unit 0.15 unit/kg (16 unit) SQ BID [facility] Stop: 06/17/18 09:01 Last Admin: 12/18/17 08:15 Dose: 16 unit Insulin Human Lispro (Humalog) 0 units SQ HS DENI PRN Reason: Protocol Stop: 06/17/18 21:01 Last Admin: 12/17/17 21:50 Dose: 2 units Insulin Human Lispro (Humalog) 0 units SQ TIDAC DENI PRN Reason: Protocol Stop: 06/17/18 07:31 Last Admin: 12/18/17 08:10 Dose: 300 units Metoprolol Succinate (Toprol Xl) 25 mg PO DAILY [facility] Stop: 06/18/18 09:01 Last Admin: 12/18/17 08:14 Dose: 25 mg Multivitamins/Calcium (Thera M Plus) 1 tab PO DAILY [facility] Stop: 06/17/18 09:01 Last Admin: 12/18/17 08:14 Dose: 1 tab Naloxone HCl (Narcan) 0.4 mg IVP Q2MIN PRN PRN Reason: Opioid Reversal Stop: 06/16/18 23:26 Nitroglycerin (Nitroglycerin) 0.4 mg SL Q5M PRN PRN Reason: Chest Pain Stop: 06/16/18 23:46 Pharmacy Profile Note (Patient Taking Own Medication) 0 each PO AD [facility] Stop: 06/16/18 23:46 Last Admin: 12/18/17 00:02 Dose: Not Given Prednisone (Prednisone) 40 mg PO DAILY [facility] Stop: 06/18/18 18:01 Last Admin: 12/18/17 08:14 Dose: 40 mg Simvastatin (Zocor) 20 mg PO HS DENI PRN Reason: Protocol Stop: 06/17/18 21:01 Last Admin: 12/17/17 20:22 Dose: 20 mg Vitamin D (Vitamin D) 1,000 unit PO DAILY [facility] Stop: 06/17/18 09:01 Last Admin: 12/18/17 08:14 Dose: 1,000 unit Vitamin E (Vitamin E) 400 unit PO DAILY [facility] Stop: 06/17/18 09:01 Last Admin: 12/18/17 08:14 Dose: 400 unit - EKG Interpretation EKG results cardiology: other (Telemetry review with average heart rate 89 the past 12 hours, currently sinus rhythm in the 80s with occasional PVCs) Consult Discharge Plan - Plan [facility]: [facility]Primary Care Provider[facility] -
--- NOTE | 2017-12-18 10:35 | Internal Med Progress Note ---
<KinacharanjitNakul santo - Last Filed: 12/18/17 17:34> Date of Encounter: 12/18/17 Time of Encounter: 10:32 - Assessment and plan (1) Acute respiratory failure with hypoxia Current Visit: Yes Status: Acute Assessment and plan: - Likely secondary to CHF exacerbation - I/O -1.8L since admission - Tolerating 92% on 2L, no home O2 requirement - Cardiology following. - Clinically appears to be improving. - CXR and CTA chest unconvincing for infiltrate Plan - Continue diuresis with 40 mg IV BID per cardiology - Continue to monitor. (2) CHF exacerbation Current Visit: Yes Status: Acute Assessment and plan: Diuresing with Lasix 40 mg IV twice a day per cardiology Appreciate cardiology input He will function greatly improved today at 38/1.22 - -1.8 L since admission - Continue to monitor and diuresis for an additional day with likely discharge tomorrow Qualifiers: Congestive heart failure type: diastolic Qualified Code(s): I50.33 - Acute on chronic diastolic (congestive) heart failure (3) COPD (chronic obstructive pulmonary disease) Current Visit: Yes Status: Chronic Assessment and plan: Chronic issue. We will auscultation on examination Continue prednisone, antibiotics for possible COPD exacerbation component Qualifiers: COPD type: emphysema Emphysema type: panlobular Qualified Code(s): J43.1 - Panlobular emphysema (4) Diabetes Current Visit: Yes Status: Chronic Assessment and plan: Monitoring blood sugar and covering with insulin. May worsen with addition of steroids. 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 Well controlled this morning at 123/60 Qualifiers: Hypertension type: essential hypertension Qualified Code(s): I10 - Essential (primary) hypertension (6) S/P aortic valve replacement Current Visit: Yes Status: Chronic Assessment and plan: Chronic issue , bioprosthetic valve Possible evidence of leak on CT scan. will likely need further evaluation at [facility] upon discharge Acute intervention planned Cardiology following, appreciate recommendations (7) Acute renal failure due to tubular necrosis Current Visit: Yes Status: Suspected Assessment and plan: Related to diuresis. Monitoring renal function. BUN/creatinine greatly improved today at 38/1.22, nearing baseline (8) Elevated troponin Current Visit: Yes Status: Acute Assessment and plan: Troponin of 0.93 on admission, trended down to 0.59 - No complaints of chest pain at this time - Cardiology on board, appreciate recommendations - No EKG changes - Likely related to demand ischemia, and given leaking aortic replacement valve may possibly need heart catheterization at [facility] - No acute intervention planned at this time (9) DVT prophylaxis Current Visit: Yes Status: Acute Assessment and plan: Heparin 5000 units every 12 hours - Time Spent With Patient 25 - 35 minutes - Subjective Interval history: Patient seen and examined that this morning. He states that he presented to emergency department due to "not feeling good". He denies any symptoms of chest pain but admits to some chronic shortness of breath lower actually swelling. Denies any symptoms of fevers, chills, nausea, vomiting. He is in no pain at this time. States that overall he feels about the same as when he presented to the emergency department. Denies use of home O2. No difficulty urinating but does states he has not had a BM since admission. - Constitutional Vitals: Temp Pulse Resp BP Pulse Ox 97.6 F 91 16 123/60 93 12/18/17 06:32 12/18/17 06:32 12/18/17 08:06 12/18/17 06:32 12/18/17 08:06 General appearance: Present: A&O X 3, answers questions appropriately Exam: Gen.: Vitals noted. No acute distress. AAOx3 HEENT: PERRL/EOMI, oropharynx clear, Normocephalic, atraumatic. Dry mucous membranes Cardiac: RRR, no murmur, +S1/S2 Pulmonary: Diminished breath sounds, otherwise CTA bilaterally, no wheezes, rales or rhonchi, equal chest expansion Abdomen: soft, nontender, BS noted, no guarding MSK: ROM intact, no joint swelling noted Extremities: 2+ pitting edema, more prominent on right, nontender calf, no cyanosis or clubbing Neuro: A&Ox3, moves all extremities, no focal deficits Psych: Appropriate mood and behavior Internal Medicine: Result - Labs CBC & Chem 7: 12/18/17 04:30 12/18/17 04:30 Labs: Short CBC 12/18/17 Range/Units 04:30 WBC 7.4 (4.3-11.1) K/mcL Hgb 13.8 (12.9-16.9) g/dL Hct 42.9 (37.5-50.1) % Plt Count 216 (140-400) K/mcL BMP 12/18/17 04:30 Sodium 137 Potassium 5.1 Chloride 97 L Carbon Dioxide 34 H BUN 38 H Creatinine 1.22 Glucose 254 H Calcium 8.7 - ABG Interpretation ABG results: PT/INR, D-dimer PT 13.0 Seconds (9.4-12.1) H 12/16/17 15:38 Consult Discharge Plan - Plan [facility]errals: [facility] [Primary Care Provider] - <Tony Mendoza - Last Filed: 12/18/17 18:57> Date of Encounter: 12/18/17 - Assessment and plan (1) Acute respiratory failure with hypoxia Current Visit: Yes Status: Acute (2) CHF exacerbation Current Visit: Yes Status: Resolved Qualifiers: Congestive heart failure type: diastolic Qualified Code(s): I50.33 - Acute on chronic diastolic (congestive) heart failure (3) COPD (chronic obstructive pulmonary disease) Current Visit: Yes Status: Chronic Qualifiers: COPD type: emphysema Emphysema type: panlobular Qualified Code(s): J43.1 - Panlobular emphysema (4) Diabetes Current Visit: Yes Status: Chronic Qualifiers: Diabetes mellitus type: type 2 Diabetes mellitus complication status: with hyperglycemia Diabetes mellitus halfway insulin use: with halfway use Qualified Code(s): E11.65 - Type 2 diabetes mellitus with hyperglycemia; Z79.4 - nursing home (current) use of insulin; 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 transplanted heart: [place] heart Associated angina: without angina Qualified Code(s): I25.10 - Atherosclerotic heart disease of [place] coronary artery without angina pectoris (7) S/P aortic valve replacement Current Visit: Yes Status: Chronic (8) Acute renal failure due to tubular necrosis Current Visit: Yes Status: Suspected - Constitutional Vitals: Temp Pulse Resp BP Pulse Ox 97.8 F 86 14 128/62 90 12/18/17 15:08 12/18/17 15:08 12/18/17 15:08 12/18/17 15:08 12/18/17 15:08 Internal Medicine: Result - Labs CBC & Chem 7: 12/18/17 04:30 12/18/17 04:30 Labs: Short CBC 12/18/17 Range/Units 04:30 WBC 7.4 (4.3-11.1) K/mcL Hgb 13.8 (12.9-16.9) g/dL Hct 42.9 (37.5-50.1) % Plt Count 216 (140-400) K/mcL BMP 12/18/17 04:30 Sodium 137 Potassium 5.1 Chloride 97 L Carbon Dioxide 34 H BUN 38 H Creatinine 1.22 Glucose 254 H Calcium 8.7 - ABG Interpretation ABG results: PT/INR, D-dimer PT 13.0 Seconds (9.4-12.1) H 12/16/17 15:38 - Attending Attestation I examined this patient and my medical decision-making was reviewed with the Resident Physician on 12/18/17. I agree with the documented findings, disposition and treatment plan as described except to the extent set forth below. Mr Lyon is currently admitted for acute exac CHF. He remains moderate to high risk due to potential for worsening clinical status. Mr Lyon appears to be breathing somewhat better today. He can lie flat better. No fever or pain. Appetite OK. Exam Alert. Comfortable Mucus membranes dry Heart reg with murmur Lungs with rales I/P 1. Resp failure 2. CHF Further diagnoses and plan as above.
[2017-12-18] MEDS ORDERED: Insulin LISPRO 300 UNITS/3 ML VIAL SQ SCH (10:48)
[2017-12-18] MEDS: Sennosides/Docusate Sodium TABLET PO SCH (12:09)
[2017-12-18] MEDS: Azithromycin 250 MG TABLET PO SCH (19:01)
[2017-12-18] MEDS ORDERED: Gabapentin 300 MG CAPSULE PO SCH (21:00)
[2017-12-19 05:00] LABS: BUN/Creatinine Ratio 33 (6-26); Blood Urea Nitrogen 32 mg/dL (8-23); Calcium 8.8 mg/dL (8.6-10.3); Carbon Dioxide 31 mEq/L (23-29); Chloride 100 mEq/L (98-107); Glucose 132 mg/dL (70-105); Osmolality,Calculated 297 (280-300); Sodium 139 mEq/L (136-145); eGFR For African Americans > 60 (> 60); eGFR For Non-African Americans > 60 (> 60)
[2017-12-19] MEDS: *HR* Heparin 5,000 UNIT/ML VIAL SQ SCH (06:22)
[2017-12-19] MEDS: Gabapentin 300 MG CAPSULE PO SCH ×2 (06:22→09:34)
[2017-12-19] MEDS: Ipratropium/Albuterol Neb 3 ML IH PRN (06:29)
--- NOTE | 2017-12-19 06:52 | Electrocardiograph Report ---
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
[2017-12-19] MEDS: Budesonide/Formoterol 160/4.5 MDI IH SCH (08:01)
[2017-12-19] MEDS: Multivit/Ca/Min/Fe/FA 1 TAB TABLET PO SCH (09:34)
[2017-12-19] MEDS: predniSONE 20 MG TABLET PO SCH (09:34)
[2017-12-19] MEDS: cefTRIAXone 1,000 MG in Water for inj. (sterile) 20 ML 10 ML IVP SCH (09:34)
[2017-12-19] MEDS: Metoprolol XL (24 HR) Succ 25 MG TAB.ER.24H PO SCH (09:35)
[2017-12-19] MEDS: Cholecalciferol (D-3) 1,000 UNIT TABLET PO SCH (09:35)
[2017-12-19] MEDS: Furosemide 40 MG/4 ML VIAL IVP SCH (09:36)
[2017-12-19] MEDS: *HR* Digoxin 0.125 MG TABLET PO SCH (09:36)
[2017-12-19] MEDS: Sennosides/Docusate Sodium TABLET PO SCH (09:36)
[2017-12-19] MEDS: Insulin DETEMIR 100 UNIT/ML X5UNITS SQ SCH (09:36)
[2017-12-19] MEDS: Cyanocobalamin (B-12) 1,000 MCG TABLET PO SCH (09:36)
[2017-12-19] MEDS: Aspirin 81 MG TAB.CHEW PO SCH (09:36)
[2017-12-19] MEDS: Insulin LISPRO 300 UNITS/3 ML VIAL SQ SCH (09:37)
--- NOTE | 2017-12-19 10:07 | Discharge Summary ---
<HerberthNakul santo - Last Filed: 12/19/17 10:04> Date of Encounter: 12/19/17 Time of Encounter: 10:04 - Discharge Diagnosis (1) Acute respiratory failure with hypoxia Priority: Primary Status: Acute (2) CHF exacerbation Priority: Secondary Status: Resolved Qualifiers: Congestive heart failure type: diastolic Qualified Code(s): I50.33 - Acute on chronic diastolic (congestive) heart failure (3) COPD (chronic obstructive pulmonary disease) Priority: Secondary Status: Chronic Qualifiers: COPD type: emphysema Emphysema type: panlobular Qualified Code(s): J43.1 - Panlobular emphysema (4) Diabetes Priority: Secondary Status: Chronic Qualifiers: Diabetes mellitus type: type 2 Diabetes mellitus complication status: with hyperglycemia Diabetes mellitus intermediate insulin use: with street cleaner use Qualified Code(s): E11.65 - Type 2 diabetes mellitus with hyperglycemia; 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; 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 ; Z79.4 - senior care (current) use of insulin; Z79.4 - senior care (current) use of insulin (5) Hypertension Priority: Secondary Status: Chronic Qualifiers: Hypertension type: essential hypertension Qualified Code(s): I10 - Essential (primary) hypertension (6) S/P aortic valve replacement Priority: Secondary Status: Chronic (7) Acute renal failure due to tubular necrosis Priority: Secondary Status: Suspected (8) Elevated troponin Priority: Secondary Status: Acute (9) DVT prophylaxis Priority: Secondary Status: Acute - Discharge Medications Prescriptions: Azithromycin [Zithromax] 500 mg PO Q24H #3 tablet Clopidogrel [Plavix] 75 mg PO DAILY #30 tab Home Medications: Acetaminophen [Tylenol] 650 mg PO Q6HR 12/15/17 [History] Aspirin Enteric Coated [Aspirin EC] 325 mg PO TID 12/15/17 [History] Budesonide/Formoterol 160/4.5 [Symbicort 160/4.5] 2 puff IH BIDR 12/15/17 [ History] Calcium/Magnesium/Zinc [Rkzveie-Mauphqxyr-Zpba Tab] 1 each PO AD 12/15/17 [ History] Cholecalciferol (D-3) [Vitamin D] 1,000 unit PO DAILY 12/15/17 [History] Cyanocobalamin (Vitamin B-12) [Vitamin B-12] 1,000 mcg SL DAILY 12/15/17 [ History] Digoxin [Lanoxin] 0.125 mg PO DAILY 12/15/17 [History] DiphenhydraMINE [Benadryl] 25 mg PO BID 12/15/17 [History] Doxazosin [Cardura] 4 mg PO HS 12/15/17 [History] Ferrous Sulfate 325 mg PO DAILY 12/15/17 [History] Furosemide [Lasix] 20 mg PO BID 12/15/17 [History] Gabapentin [Neurontin] 300 mg PO QID 12/15/17 [History] Insulin NPH Human Isophane [Novolin N] 40 unit SQ BID 12/15/17 [History] Insulin Regular, Human [Novolin R] 4 unit SQ 0800,1700 12/15/17 [History] Insulin Regular, Human [Novolin R] 8 unit SQ 1200 12/15/17 [History] Losartan Potassium [Cozaar] 100 mg PO HS 12/15/17 [History] Metoprolol Succinate 12.5 mg PO DAILY 12/15/17 [History] Multivitamin [One Daily Multivitamin] 1 each PO DAILY 12/15/17 [History] Nitroglycerin [Nitrostat] 0.4 mg SL Q5M PRN 12/15/17 [History] Ranitidine HCl [Zantac] 300 mg PO BID 12/15/17 [History] Simvastatin [Zocor] 20 mg PO HS 12/15/17 [History] Theophylline Anhydrous [Usama-24] 300 mg PO DAILY 12/15/17 [History] Vitamin E Acid Succinate [Vitamin E] 400 unit PO DAILY 12/15/17 [History] guaiFENesin [Guaifenesin] 200 mg PO BID 12/15/17 [History] Azithromycin [Zithromax] 500 mg PO Q24H #3 tablet 12/19/17 [Rx] Clopidogrel [Plavix] 75 mg PO DAILY #30 tab 12/19/17 [Rx] Allergies/Adverse Reactions: 3 Allergy/AdvReac Type Severity Reaction Status Date / Time lisinopril AdvReac See Verified 12/15/17 20:50 Comments Procedures/tests Complete & Pending: Procedures Performed prior 72 hours Category Date Time Status CT angio chest [CT] Stat Cat Scan 12/16/17 15:15 Completed Date of admission: 12/15/17 19:56 Primary care physician: TAISHA BONILLA Consults: 12/15/17 23:29 Consult to Cardiology [CONS] Routine Comment: Consulting Provider: Maria Del Rosario Burton Reason for Consult: Aortic valve leak, elevated troponin Call Completed: No Discharging clinician: Nakul Young Anticipated date of discharge: 12/19/17 - Patient Status Disposition: Home, Self-Care Condition: Fair Functional capacity at discharge: uses cane/walker Overall status at discharge: patient is progressing back to baseline - Discharge Instructions [facility] Provider[facility] - 12/26/17 11:15 am Additional Instructions: Please follow with her primary care physician upon discharge for further management of her medical conditions. We discussed further management for left heart catheterization for your prosthetic valve at [facility]. Please take your medications as prescribed - Diet and Activity Activity: ambulate only with your walker, increase activity as tolerated, resume usual activities as tolerated Diet: low salt diet Hospital course: Mr. Lyon is a 82 year old male who presented to emergency room with chief complaint of shortness of breath and bilateral leg swelling. His past medical history of COPD, diabetes, hypertension, CAD with stenting, CHF, bioprosthetic aortic valve replacement with reported valve leak. In the emergency room vitals were significant for a heart rate of 119, respirations 20, BP of 156/80. Labs were significant for mild hyponatremia 134, troponin is 0.93 which was down trended to 0.59. Cardiology was consulted and patient was admitted to hospital for further evaluation and management of congestive heart failure. During course possible stay, the patient gradually improved. He was treated with Lasix with good diuresis.Cardiology was following and felt that given his bioprosthetic valve would be a better candidate for left heart catheterization at [facility] where the valve was put in. On day of discharge, patient had no complaints of shortness of breath and he states his swelling has gone down. He is tolerating his home oxygen requirement. Lab results at baseline. Vitals unremarkable. All questions were answered and patient will be discharged home with possible home health in stable medical condition. He was instructed to follow up with cardiology on discharge. He will be sent home with [id number]-lindsey for possible exacerbation of COPD during stay. - Time Spent with Patient Total time spent providing and/or coordinating discharge services: - Constitutional Vitals: Temp Pulse Resp BP Pulse Ox 97.7 F 92 16 136/70 95 12/19/17 06:24 12/19/17 06:24 12/19/17 08:02 12/19/17 06:24 12/19/17 08:02 General appearance: Present: A&O X 3, answers questions appropriately Exam: Gen.: Vitals noted. No acute distress. AAOx3 HEENT: PERRL/EOMI, oropharynx clear, Normocephalic, atraumatic Cardiac: RRR, no murmur, +S1/S2 Pulmonary: Mildly diminished, otherwise CTA bilaterally, no wheezes, rales or rhonchi, equal chest expansion Abdomen: soft, nontender, BS noted, no guarding MSK: ROM intact, no joint swelling noted Extremities:mild chronic BLE edema, nontender calf, no cyanosis or clubbing Neuro: A&Ox3, moves all extremities, no focal deficits Psych: Appropriate mood and behavior <Tony Mendoza - Last Filed: 12/19/17 15:10> Date of Encounter: 12/19/17 - Discharge Diagnosis (1) Acute respiratory failure with hypoxia Status: Acute (2) CHF exacerbation Status: Resolved Qualifiers: Congestive heart failure type: diastolic Qualified Code(s): I50.33 - Acute on chronic diastolic (congestive) heart failure (3) COPD (chronic obstructive pulmonary disease) Status: Chronic Qualifiers: COPD type: emphysema Emphysema type: panlobular Qualified Code(s): J43.1 - Panlobular emphysema (4) Diabetes Status: Chronic Qualifiers: Diabetes mellitus type: type 2 Diabetes mellitus complication status: with hyperglycemia Diabetes mellitus intermediate insulin use: with street cleaner use Qualified Code(s): E11.65 - Type 2 diabetes mellitus with hyperglycemia; Z79.4 - senior care (current) use of insulin; 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 transplanted heart: [place] heart Associated angina: without angina Qualified Code(s): I25.10 - Atherosclerotic heart disease of [place] coronary artery without angina pectoris (7) S/P aortic valve replacement Status: Chronic (8) Acute renal failure due to tubular necrosis Status: Resolved Procedures/tests Complete & Pending: Procedures Performed prior 72 hours Category Date Time Status CT angio chest [CT] Stat Cat Scan 12/16/17 15:15 Completed Date of admission: 12/15/17 19:56 [facility] Consults: 12/15/17 23:29 Consult to Cardiology [CONS] Routine Comment: Consulting Provider: Cardiology Josephine Reason for Consult: Aortic valve leak, elevated troponin Call Completed: No Hospital course: Mr. Lyon is a 82 year old male - Time Spent with Patient Total time spent providing and/or coordinating discharge services: 37min - Constitutional Vitals: Temp Pulse Resp BP Pulse Ox 97.6 F 98 14 142/69 92 12/19/17 10:06 12/19/17 10:06 12/19/17 10:06 12/19/17 10:06 12/19/17 11:56 - Attending Attestation I examined this patient and my medical decision-making was reviewed with the Resident Physician on 12/19/17. I agree with the documented findings, disposition and treatment plan as described except to the extent set forth below. Mr. Lyon has been admitted for acute exac CHF. He is breathing better at this time. He is needing oxygen and will have it at discharge. He is afebrile with stable vitals. Exam Alert. Comfortable Mucus membranes dry Heart not tachy Scattered bibasilar rales Abd soft Edema improving I/P 1. Acute exac CHF 2. Hx aortic valve Plan D/C home today Arrange oxygen To follow up with cardiology and then go to [facility] for reevaluation of his valve.
[2017-12-19 10:10] VITALS: BP 142/69
--- NOTE | 2017-12-19 10:20 | Physician Discharge Referral ---
<Nakul Young - Last Filed: 12/19/17 10:19> Home Health/Hosp Referral Info Transfer to: Home Health Provider in Charge Post Discharge: PCP - Diagnosis (1) Acute respiratory failure with hypoxia Priority: Primary Status: Acute (2) CHF exacerbation Priority: Secondary Status: Resolved (3) COPD (chronic obstructive pulmonary disease) Priority: Secondary Status: Chronic (4) Diabetes Priority: Secondary Status: Chronic (5) Hypertension Priority: Secondary Status: Chronic (6) S/P aortic valve replacement Priority: Secondary Status: Chronic (7) Acute renal failure due to tubular necrosis Priority: Secondary Status: Suspected (8) Elevated troponin Priority: Secondary Status: Acute (9) DVT prophylaxis Priority: Secondary Status: Acute - Respiratory Orders Smoking Cessation: Smoking cessation has been advised. For more information, call the [place] Quit Line at 1-167-RSSP-NOW. - Diet/Nutrition Diet/Nutrition Orders: Cardiac - Activity Activity Orders: Walker - Services Needed Following services are medically necessary services: Home Health Aide - Transfer Medications Prescriptions: Azithromycin [Zithromax] 500 mg PO Q24H #3 tablet Clopidogrel [Plavix] 75 mg PO DAILY #30 tab Home Medications: Acetaminophen [Tylenol] 650 mg PO Q6HR 12/15/17 [History] Aspirin Enteric Coated [Aspirin EC] 325 mg PO TID 12/15/17 [History] Budesonide/Formoterol 160/4.5 [Symbicort 160/4.5] 2 puff IH BIDR 12/15/17 [ History] Calcium/Magnesium/Zinc [Ppdfpde-Oejlsckhh-Urrv Tab] 1 each PO AD 12/15/17 [ History] Cholecalciferol (D-3) [Vitamin D] 1,000 unit PO DAILY 12/15/17 [History] Cyanocobalamin (Vitamin B-12) [Vitamin B-12] 1,000 mcg SL DAILY 12/15/17 [ History] Digoxin [Lanoxin] 0.125 mg PO DAILY 12/15/17 [History] DiphenhydraMINE [Benadryl] 25 mg PO BID 12/15/17 [History] Doxazosin [Cardura] 4 mg PO HS 12/15/17 [History] Ferrous Sulfate 325 mg PO DAILY 12/15/17 [History] Furosemide [Lasix] 20 mg PO BID 12/15/17 [History] Gabapentin [Neurontin] 300 mg PO QID 12/15/17 [History] Insulin NPH Human Isophane [Novolin N] 40 unit SQ BID 12/15/17 [History] Insulin Regular, Human [Novolin R] 4 unit SQ 0800,1700 12/15/17 [History] Insulin Regular, Human [Novolin R] 8 unit SQ 1200 12/15/17 [History] Losartan Potassium [Cozaar] 100 mg PO HS 12/15/17 [History] Metoprolol Succinate 12.5 mg PO DAILY 12/15/17 [History] Multivitamin [One Daily Multivitamin] 1 each PO DAILY 12/15/17 [History] Nitroglycerin [Nitrostat] 0.4 mg SL Q5M PRN 12/15/17 [History] Ranitidine HCl [Zantac] 300 mg PO BID 12/15/17 [History] Simvastatin [Zocor] 20 mg PO HS 12/15/17 [History] Theophylline Anhydrous [Usama-24] 300 mg PO DAILY 12/15/17 [History] Vitamin E Acid Succinate [Vitamin E] 400 unit PO DAILY 12/15/17 [History] guaiFENesin [Guaifenesin] 200 mg PO BID 12/15/17 [History] Azithromycin [Zithromax] 500 mg PO Q24H #3 tablet 12/19/17 [Rx] Clopidogrel [Plavix] 75 mg PO DAILY #30 tab 12/19/17 [Rx] Allergies/Adverse Reactions: 3 Allergy/AdvReac Type Severity Reaction Status Date / Time lisinopril AdvReac See Verified 12/15/17 20:50 Comments Certification: Further, I certify that my clinical findings support that this patient is homebound (i.e. absences from home require considerable and taxing effort and are for medical reasons or worship services or infrequently or short duration when for other reasons) because: Homebound Reason: Leaving home requires considerable and taxing effort due to condition Attestation: My signature below is to certify that this patient is under my care and that I, or nurse practitioner, or a physician's activities assistant working with me, has a face-to -face encounter with this patient. <Tony Mendoza - Last Filed: 12/19/17 12:20> - Diagnosis (1) Acute respiratory failure with hypoxia Status: Acute (2) CHF exacerbation Status: Resolved (3) COPD (chronic obstructive pulmonary disease) Status: Chronic (4) Diabetes Status: Chronic (5) Hypertension Status: Chronic (6) CAD (coronary artery disease) Status: Chronic (7) S/P aortic valve replacement Status: Chronic (8) Acute renal failure due to tubular necrosis Status: Suspected - Respiratory Orders Oxygen / L per min (2l/min NC) Smoking Cessation: Smoking cessation has been advised. For more information, call the [place] [employer] Quit Line at 9-482-LSYS-NOW. - Services Needed Following services are medically necessary services: Nursing, Physical Therapy, Occupational Therapy Certification: Further, I certify that my clinical findings support that this patient is homebound (i.e. absences from home require considerable and taxing effort and are for medical reasons or worship services or infrequently or short duration when for other reasons) because: Homebound Reason: Severity of cardiac or pulmonary status limits activity tolerance Attestation: My signature below is to certify that this patient is under my care and that I, or nurse practitioner, or a physician's activities assistant working with me, has a face-to -face encounter with this patient.
== END 2017-12-19 15:16 | disposition home or self-care (01) | DRG 291 ==
LOC: 2NENU 19:56
PROVIDERS: ADMIT Hospitalist; ATTEND Internal Medicine